=== PATIENT | female | born 1995 | race African-American/Black ===

== ENCOUNTER → 2018-03-22 | Outpatient (REF) | payer OTHER ==
[2018-03-22 10:13] LABS: TOTAL VOLUME, URINE 2750 ML
[2018-03-22 11:52] LABS: TOTAL PROTEIN 24 HOUR URINE 324.5 MG/24HR (50-150); URINE TOTAL PROTEIN 11.8 MG/DL (0-12)
== END ==
LOC: M LAB 12:16
DX: O16.1 Unspecified maternal hypertension, first trimester (principal)
CPT/HCPCS: 81050

== ENCOUNTER 2018-03-25 16:20 | Inpatient (IN) | payer OTHER ==
[2018-03-25 17:43] LABS: HEMOGLOBIN 9.7 g/dl (12.0-15.5); MEAN CORPUSCULAR HEMOGLOBIN 25.2 pg (27.0-33.0); MEAN CORPUSCULAR HGB CONC 32.3 g/dl (32.0-36.5); MEAN CORPUSCULAR VOLUME 77.9 fl (80.0-96.0); PLATELET COUNT, AUTOMATED 210 10^3/uL (150-450); RED BLOOD COUNT 3.85 10^6/uL (4.00-5.40); RED CELL DISTRIBUTION WIDTH 15.9 % (11.5-14.5); WHITE BLOOD COUNT 9.4 10^3/uL (4.0-10.0)
[2018-03-25] MEDS ORDERED: LR 1,000 ML IV (18:11)
[2018-03-25 18:23] LABS: ALBUMIN 2.7 GM/DL (3.2-5.2); ALBUMIN/GLOBULIN RATIO 0.61 (1.00-1.93); ALKALINE PHOSPHATASE 183 U/L (45-117); ALT/SGPT 15 U/L (12-78); ANION GAP 8 MEQ/L (8-16); AST/SGOT 13 U/L (7-37); BILIRUBIN,TOTAL 0.4 MG/DL (0.2-1.0); BLOOD UREA NITROGEN 5 MG/DL (7-18); CALCIUM LEVEL 9.2 MG/DL (8.5-10.1); CARBON DIOXIDE LEVEL 24 MEQ/L (21-32); CHLORIDE LEVEL 108 MEQ/L (98-107); CREATININE FOR GFR 0.54 MG/DL (0.55-1.30); GLOMERULAR FILTRATION RATE > 60.0 (>60); GLUCOSE, FASTING 90 MG/DL (70-100); POTASSIUM SERUM 2.9 MEQ/L (3.5-5.1); SODIUM LEVEL 140 MEQ/L (136-145); TOTAL PROTEIN 7.1 GM/DL (6.4-8.2)
[2018-03-25] MEDS: LACTATED RINGER'S 1000 ML IV (18:41)
[2018-03-25] MEDS: BETAMETHASONE SOLUSPAN 6MG/ML INJ 5ML (J0702) IM (18:41)
[2018-03-25] MEDS: PENICILLIN G POTASSIUM IV 5 MU in D5W MINI-BAG PLUS 100 ML IV (18:41)
[2018-03-25] MEDS: OXYTOCIN DRIP 30 UNITS in APPROPRIATE DILUENT 1 EA IV (18:42)
[2018-03-25 19:22] LABS: AMPHETAMINES URINE REFLEX NEGATIVE (NEGATIVE); BARBITURATES URINE REFLEX NEGATIVE (NEGATIVE); BENZODIAZEPINES URINE REFLEX NEGATIVE (NEGATIVE); CANNABINOIDS URINE REFLEX NEGATIVE (NEGATIVE); COCAINE METABOLITE URINE REFLE NEGATIVE (NEGATIVE); METHADONE URINE REFLEX NEGATIVE (NEGATIVE); OPIATES URINE REFLEX NEGATIVE (NEGATIVE); PHENCYCLIDINE URINE REFLEX NEGATIVE (NEGATIVE)
[2018-03-25 20:14] LABS: MAGNESIUM LEVEL 1.6 MG/DL (1.8-2.4)
[2018-03-25 20:14] LABS: POTASSIUM SERUM 3.2 MEQ/L (3.5-5.1)
[2018-03-25] MEDS ORDERED: NIFEdipine 10 MG CAP As Ordered (20:17)
[2018-03-25] MEDS: NIFEdipine 10 MG CAP PO (20:28)
[2018-03-25] MEDS ORDERED: MAGNESIUM SULFATE 4% INJ 20GM/500ML (40MG/ML) (J3475) As Ordered (20:58)
[2018-03-25] MEDS ORDERED: hydrALAZINE INJ 20 MG/ML VIAL As Ordered (20:58)
[2018-03-25] MEDS ORDERED: MAGNESIUM *L&D* 4 GM/100 ML BAG (40MG/ML) (J3475) As Ordered (20:58)
[2018-03-25] MEDS ORDERED: CALCIUM GLUCONATE 1,000 MG in D5W MINI-BAG PLUS 100 ML IV (21:00)
[2018-03-25] MEDS: hydrALAZINE INJ 20 MG/ML VIAL IV (21:13)
[2018-03-25] MEDS: MAG Sulf (L&D) 4 GM/100 ML 4 GM in APPROPRIATE DILUENT 1 EA IV (21:13)
[2018-03-25] MEDS: FENTANYL/ROPIVACAINE/NACL BAG 200 ML EPIDURAL (21:29)
[2018-03-25] MEDS ORDERED: ePHEDrine SULFATE 25 MG/5 ML(5MG/ML) SYRINGE IV (21:29)
[2018-03-25] MEDS ORDERED: EPIDURAL/PCA KEYS XX (21:29)
[2018-03-25] MEDS ORDERED: LACTATED RINGER'S 1000 ML IV (21:29)
[2018-03-25] MEDS ORDERED: diphenhydrAMINE INJ 50MG/ML VIAL (J1200) IV (21:29)
[2018-03-25] MEDS ORDERED: NALOXONE INJ 0.4 MG/1 ML VIAL (J2310) IV (21:29)
[2018-03-25] MEDS ORDERED: EPIDURAL COMMENT XX (21:29)
[2018-03-25] MEDS ORDERED: ONDANSETRON 4MG/2ML VIAL (J2405) IV ×2 (21:29→23:15)
[2018-03-25] MEDS ORDERED: FENTANYL 2MCG/ML ROPIVACAINE 0.2% IN 0.9% NACL 200ML IVBAG As Ordered (21:29)
[2018-03-25] MEDS ORDERED: REFRIGERATOR IV KEYS XX (21:29)
[2018-03-25] MEDS: MAG Sulf (OBGYN) 20GM/500ML 20,000 MG in APPROPRIATE DILUENT 1 EA IV (21:40)
[2018-03-25] MEDS: LR 1,000 ML IV (22:14)
[2018-03-25] MEDS ORDERED: DIBUCAINE 1% OINTMENT 30GM TOP (23:15)
[2018-03-25] MEDS ORDERED: PROMETHAZINE 25 MG TAB PO (23:15)
[2018-03-26] MEDS: IBUPROFEN 800 MG TAB PO ×2 (00:05→07:34)
[2018-03-26] MEDS: PENICILLIN G POTASSIUM IV 2.5 MU in APPROPRIATE DILUENT 1 EA IV ×2 (01:01→04:37)
[2018-03-26] MEDS: ACETAMINOPHEN 500 MG TAB PO ×2 (02:38→11:27)
[2018-03-26 04:21] LABS: ALBUMIN 2.8 GM/DL (3.2-5.2); ALBUMIN/GLOBULIN RATIO 0.67 (1.00-1.93); ALKALINE PHOSPHATASE 206 U/L (45-117); ALT/SGPT 14 U/L (12-78); ANION GAP 10 MEQ/L (8-16); AST/SGOT 22 U/L (7-37); BILIRUBIN,TOTAL 0.4 MG/DL (0.2-1.0); BLOOD UREA NITROGEN 5 MG/DL (7-18); CALCIUM LEVEL 8.2 MG/DL (8.5-10.1); CARBON DIOXIDE LEVEL 23 MEQ/L (21-32); CHLORIDE LEVEL 111 MEQ/L (98-107); CREATININE FOR GFR 0.51 MG/DL (0.55-1.30); GLOMERULAR FILTRATION RATE > 60.0 (>60); GLUCOSE, FASTING 117 MG/DL (70-100); POTASSIUM SERUM 3.3 MEQ/L (3.5-5.1); SODIUM LEVEL 144 MEQ/L (136-145)
[2018-03-26 04:35] LABS: MAGNESIUM LEVEL 4.6 MG/DL (1.8-2.4)
[2018-03-26] MEDS: MAG Sulf (OBGYN) 20GM/500ML 20,000 MG in APPROPRIATE DILUENT 1 EA IV ×2 (07:35→17:55)
[2018-03-26] MEDS: PRENATAL VITAMINS CHEWABLE TABLET PO (07:35)
[2018-03-26] MEDS: LR 1,000 ML IV ×3 (07:36→18:11)
[2018-03-26] MEDS: MEASLES,MUMPS,RUBELLA VACCINE INJ (MMR-II) (90707) SC (08:12)
[2018-03-26] MEDS: RHOGAM 300 MCG (1500 IU) INJ (J2790) IM (08:12)
[2018-03-26 11:34] LABS: POTASSIUM SERUM 3.1 MEQ/L (3.5-5.1)
[2018-03-26 11:39] LABS: MAGNESIUM LEVEL 5.7 MG/DL (1.8-2.4)
[2018-03-27] MEDS: LR 1,000 ML IV ×4 (02:11→20:23)
[2018-03-27] MEDS: PRENATAL VITAMINS CHEWABLE TABLET PO (10:40)
[2018-03-27] MEDS: IBUPROFEN 800 MG TAB PO (18:45)
[2018-03-27] MEDS: DOCUSATE SODIUM 100 MG CAP PO (19:51)
[2018-03-28] MEDS: PRENATAL VITAMINS CHEWABLE TABLET PO (08:35)
[2018-03-28] MEDS: IBUPROFEN 800 MG TAB PO (08:45)
[2018-03-28] MEDS: ACETAMINOPHEN 500 MG TAB PO (14:09)
[2018-03-28] MEDS: LABETALOL 200 MG TAB PO (19:37)
[2018-03-29] MEDS: PRENATAL VITAMINS CHEWABLE TABLET PO (09:06)
[2018-03-29] MEDS: IBUPROFEN 800 MG TAB PO ×2 (09:07→22:18)
[2018-03-29] MEDS: LABETALOL 200 MG TAB PO ×3 (09:08→22:17)
[2018-03-29] MEDS ORDERED: LABETALOL 200 MG TAB PO (21:00)
[2018-03-29] MEDS: NIFEdipine 30 MG XL TAB PO (22:47)
[2018-03-29] MEDS: hydrALAZINE INJ 20 MG/ML VIAL IV (23:40)
[2018-03-30] MEDS: PRENATAL VITAMINS CHEWABLE TABLET PO (08:43)
[2018-03-30] MEDS: DOCUSATE SODIUM 100 MG CAP PO (08:43)
[2018-03-30] MEDS: LABETALOL 200 MG TAB PO ×2 (08:44→21:15)
[2018-03-30] MEDS: NIFEdipine 30 MG XL TAB PO (21:16)
[2018-03-31] MEDS: LR 1,000 ML IV ×5 (03:52→03:53)
[2018-03-31] MEDS: PRENATAL VITAMINS CHEWABLE TABLET PO (08:27)
[2018-03-31] MEDS: LABETALOL 200 MG TAB PO (08:28)
== END 2018-03-31 11:15 | disposition home or self-care (01) | DRG 775 ==
LOC: M LDO 16:20 → M OBS 03-26 23:49 → M LDI 18:07
PROC: 10E0XZZ Delivery of Products of Conception, External Approach (ICD-10-PCS; principal; 2018-03-25)
PROC: 0KQM0ZZ Repair Perineum Muscle, Open Approach (ICD-10-PCS; 2018-03-25)
DX: O42.113 Preterm premature rupture of membranes, onset of labor more than 24 hours following rupture, third trimester (principal); O14.14 Severe pre-eclampsia complicating childbirth; O99.824 Streptococcus B carrier state complicating childbirth; Z3A.36 36 weeks gestation of pregnancy; O99.02 Anemia complicating childbirth; D64.9 Anemia, unspecified; O70.1 Second degree perineal laceration during delivery; Z37.0 Single live birth

== ENCOUNTER 2019-06-12 13:05 | Outpatient (CLI) | payer OTHER ==
[~2019-06-12] VITALS: Ht 170.2 cm; Wt 82.3 kg
[~2019-06-12 13:05] MED LIST: FERR325T3 PO; MAPA500T2 PO
[2019-06-12 13:31] VITALS: BP 127/64
[2019-06-12] MEDS ORDERED: FLUCONAZOLE 50MG TABLET PO ONE (15:00)
[2019-06-12 15:35] VITALS: BP 124/77
--- NOTE | 2019-06-12 16:10 | NUR ---
[facility] L&D Outpatient Evaluation Note S: Claudia is a 23 y/o who presents at 32+5 weeks via L/8+6 week US for c/o one time blood tinged dc noted while wiping after going to the bathroom earlier this morning (reports both BM and urination at the time and denies any further dc of this appearance) she also reports more frequent BH contractions and thicker vaginal discharge for the past 24 hours. She endorses excellent FM; denies LOF; and denies pain with ctx. Her is c/b A1GDM, short interval , overweight, anemia and enlarged thyroid. O: VSS/AF GEN: A&Ox3 PUL: CTAB CV: RRR ABD: Gravid; relaxed uterine resting tone EXT: Neg edema; Neg homans SSE: no vaginal bleeding; neg valsalva; closed os Micro: + fungal elements; neg clue cells; neg ferning; neg trich SCE: closed, thick, high; soft consistency FHR: initially CAT I fhr but non-reactive for gestational age; + 15x15 accelerations after increasing PO intake. BPP ordered d/t initial non-reactivity. BPP results pending A/P: 23 y/o at 32+5 weeks via L/8+6 week US. VVC dx via microscopy and treated with oral diflucan. ctx but no evidence of PTL or PPROM. CAT I FHR; appropriate for gestational age. May be dc'd home pending reassuring BP. Ex tensive review of late gestation warning signs, return precautions and importance of daily movement assessments. She has been instructed to f/u for MACIE as previously scheduled. She concurs with plan of care and reports understanding of all teaching.
--- NOTE | 2019-06-12 17:11 | REP ---
Obstetric sonography: History: Limited obstetric nonreactive stress test. Findings: Limited obstetric sonography demonstrates a single intrauterine gestation in a cephalic lie. A posterior placenta is seen without evidence of previa or abruption, grade one to two changes. Biophysical profile score is eight out of a possible eight. Amniotic fluid is subjectively normal. JOSE is normal at 10.6 cm. SD ratio in the umbilical cord artery by Doppler is normal at 2.46. Closed cervical length is 3.1 cm viewed transabdominally. Electronically Signed by Kyle Padron MD 06/12/2019 05:02 P
== END 2019-06-12 17:25 | disposition home or self-care (01) ==
LOC: M LDO 13:05
PROVIDERS: ATTEND Advanced Practice Midwife
DX: O26.853 Spotting complicating pregnancy, third trimester (principal); O26.893 Other specified pregnancy related conditions, third trimester; N89.8 Other specified noninflammatory disorders of vagina; O47.03 False labor before 37 completed weeks of gestation, third trimester; Z3A.32 32 weeks gestation of pregnancy
CPT/HCPCS: 59025; 76819; 76820; G0378; G0463

== ENCOUNTER 2019-07-12 19:43 | Inpatient (IN) | payer OTHER ==
[2019-07-12] VITALS (17 sets, daily range): BP systolic 131–194; BP diastolic 67–101
[~2019-07-12] VITALS: Ht 170.2 cm; Wt 81.7 kg
[2019-07-12] MEDS ORDERED: VITA500C24 PO (20:05)
[2019-07-12] MEDS ORDERED: MULTTAB20 PO (20:05)
[2019-07-12] MEDS ORDERED: LACTATED RINGER'S 1000 ML IV STA (20:23)
[2019-07-12] MEDS ORDERED: LR 1,000 ML IV SCH (20:23)
[2019-07-12 21:05] LABS: HEMATOCRIT 34.5 % (36.0-47.0); MEAN CORPUSCULAR HEMOGLOBIN 24.2 pg (27.0-33.0); MEAN CORPUSCULAR HGB CONC 31.9 g/dl (32.0-36.5); PLATELET COUNT, AUTOMATED 193 10^3/uL (150-450); RED BLOOD COUNT 4.54 10^6/uL (4.00-5.40); WHITE BLOOD COUNT 8.1 10^3/uL (4.0-10.0)
[2019-07-12] MEDS ORDERED: PENICILLIN G POTASSIUM IV 5 MU in D5W MINI-BAG PLUS 100 ML IV ONE (21:30)
[2019-07-12] MEDS ORDERED: FENTANYL 2MCG/ML ROPIVACAINE 0.2% IN 0.9% NACL 100ML IVBAG As Ordered ONE (22:08)
[2019-07-12] MEDS ORDERED: ePHEDrine SULFATE 25 MG/5 ML(5MG/ML) SYRINGE IV PRN (23:15)
[2019-07-12] MEDS ORDERED: FENTANYL/ROPIVACAINE/NACL BAG 100 ML EPIDURAL SCH (23:15)
[2019-07-12] MEDS ORDERED: ONDANSETRON 4MG/2ML VIAL (J2405) IV PRN (23:15)
[2019-07-12] MEDS ORDERED: EPIDURAL/PCA KEYS XX PRN (23:15)
[2019-07-12] MEDS ORDERED: NALOXONE INJ 0.4 MG/1 ML VIAL (J2310) IV PRN (23:15)
[2019-07-12] MEDS ORDERED: REFRIGERATOR IV KEYS XX PRN (23:15)
[2019-07-12] MEDS ORDERED: LACTATED RINGER'S 1000 ML IV PRN (23:15)
[2019-07-12] MEDS ORDERED: EPIDURAL COMMENT XX SCH (23:15)
[2019-07-12] MEDS ORDERED: diphenhydrAMINE INJ 50MG/ML VIAL (J1200) IV PRN (23:15)
[2019-07-12] MEDS ORDERED: OXYTOCIN 30 UNITS IN 0.9% NaCl 500ML IV BAG (J2590) As Ordered ONE (23:37)
[2019-07-13] VITALS (9 sets, daily range): BP systolic 124–137; BP diastolic 73–86
[2019-07-13 00:10] LABS: ALT/SGPT 23 U/L (12-78); BILIRUBIN,TOTAL 0.6 MG/DL (0.2-1.0); BLOOD UREA NITROGEN 4 MG/DL (7-18); CALCIUM LEVEL 8.2 MG/DL (8.5-10.1); CARBON DIOXIDE LEVEL 24 MEQ/L (21-32); CHLORIDE LEVEL 110 MEQ/L (98-107); CREATININE FOR GFR 0.49 MG/DL (0.55-1.30); GLOMERULAR FILTRATION RATE > 60.0 (>60); GLUCOSE, FASTING 74 MG/DL (70-100); LDH LACTATE DEHYDROGENASE 418 U/L (84-246); POTASSIUM SERUM 3.7 MEQ/L (3.5-5.1); SODIUM LEVEL 142 MEQ/L (136-145); URIC ACID 3.4 MG/DL (2.6-6.0)
[2019-07-13] MEDS ORDERED: OXYTOCIN DRIP 30 UNITS in APPROPRIATE DILUENT 1 EA IV SCH (00:42)
[2019-07-13] MEDS ORDERED: DIBUCAINE 1% OINTMENT 30GM TOP PRN (00:45)
[2019-07-13] MEDS ORDERED: IBUPROFEN 600 MG TAB PO PRN (00:45)
[2019-07-13] MEDS ORDERED: ACETAMINOPHEN TAB 650MG DOSE (2X325MG) PO PRN (00:45)
[2019-07-13] MEDS ORDERED: RHOGAM 300 MCG (1500 IU) INJ (J2790) IM SCH (00:45)
[2019-07-13] MEDS ORDERED: MEASLES,MUMPS,RUBELLA VACCINE INJ (MMR-II) (90707) SC SCH (00:45)
[2019-07-13] MEDS ORDERED: DOCUSATE SODIUM 100 MG CAP PO PRN (00:45)
[2019-07-13] MEDS ORDERED: METHYLERGONOVINE MALEATE 0.2 MG TAB PO PRN (00:45)
[2019-07-13] MEDS ORDERED: PENICILLIN G POTASSIUM IV 2.5 MU in APPROPRIATE DILUENT 1 EA IV SCH (02:00)
[2019-07-13] MEDS ORDERED: SLF 3 ML SYR IV PRN (03:15)
[2019-07-13] MEDS: SLF 3 ML SYR IV SCH ×3 (05:31→22:25)
--- NOTE | 2019-07-13 07:14 | HPE ---
DATE OF ADMISSION: 07/12/2019 Claudia is a 23-year-old female 2, para 0-1-0-1 with an estimated date of confinement (EDC) of sick to the August 02, 2098, estimated gestational age (EGA) 37 weeks gestation. The patient has a history of prior labor and pre-eclampsia 36 weeks. She also has a history of gestational diabetes with this , diet control. She presented today with complaints of contractions every 2-3 minutes. Upon evaluation in labor and delivery, she was found to be in early labor with a cervix 4 cm 70% effaced, fetus at -3 station. Her record reviewed and group B strep (GBS) status unknown. LAB: Blood type is B+, rubella immune, hepatitis negative, HIV negative, GC chlamydia negative, 1-hour sugar testing was abnormal, at 3 hours is also abnormal. PAST MEDICAL HISTORY: Significant for gestational diabetes diet control. She had a history of pre-eclampsia with her last . Had premature rupture of membrane at 36 weeks and delivered. PAST SURGICAL HISTORY: Denies. SOCIAL HISTORY: She denies any alcohol, drugs or cigarette smoking. REVIEW OF SYSTEMS: Unremarkable. MEDICATIONS: vitamins ALLERGIES: No known drug allergy. PHYSICAL EXAMINATION: Normal-appearing female. No acute distress. Abdomen: Soft, nontender, non distended. Extremities: No clubbing, cyanosis or edema. Vaginal exam: 4 cm, 70% fetus at -3 station. Tracing reviewed, category 1 tracing, contractions every 3-4 minutes. ASSESSMENT: Intrauterine at 37 weeks gestation in early labor with history of deliveries at 36 weeks, history of gestational diabetes diet control. PLAN: Admit to labor and delivery. Routine labs sent. Pain management discussed. The patient opts for an epidural. Will continue to monitor and anticipate delivery.
[2019-07-13] MEDS: PRENATAL VITAMINS CHEWABLE TABLET PO SCH (08:59)
[2019-07-13] MEDS: IBUPROFEN 800 MG TAB PO PRN (09:00)
[2019-07-13] MEDS: ACETAMINOPHEN 500 MG TAB PO PRN ×2 (14:40→22:31)
--- NOTE | 2019-07-13 21:05 | DN ---
DATE: 07/12/2019 A 23-year-old female 2, para 0-1-0-1 who was admitted at 37 weeks gestation in active labor. She progressed to fully dilated, pushed once and delivered a live male infant in right occiput anterior position over an intact perineum. scores 8 and 9. weight 6 pounds, 3 ounces. Placenta delivered spontaneously with a questionable placental abruption. Estimated blood loss 250 mL. Both mother and baby in stable condition.
[2019-07-14] VITALS (7 sets, daily range): BP systolic 133–162; BP diastolic 82–102
[2019-07-14] MEDS: SLF 3 ML SYR IV SCH ×3 (06:19→20:39)
[2019-07-14] MEDS: PRENATAL VITAMINS CHEWABLE TABLET PO SCH (07:32)
[2019-07-14 07:57] LABS: HEMATOCRIT 36.3 % (36.0-47.0); HEMOGLOBIN 11.5 g/dl (12.0-15.5); MEAN CORPUSCULAR HEMOGLOBIN 24.2 pg (27.0-33.0); MEAN CORPUSCULAR HGB CONC 31.7 g/dl (32.0-36.5); MEAN CORPUSCULAR VOLUME 76.4 fl (80.0-96.0); PLATELET COUNT, AUTOMATED 173 10^3/uL (150-450); RED BLOOD COUNT 4.75 10^6/uL (4.00-5.40); WHITE BLOOD COUNT 7.6 10^3/uL (4.0-10.0)
[2019-07-14] MEDS ORDERED: LABETALOL 200 MG TAB PO ONE (08:00)
[2019-07-14 08:22] LABS: ALT/SGPT 20 U/L (12-78); BILIRUBIN,TOTAL 0.4 MG/DL (0.2-1.0); CREATININE FOR GFR 0.64 MG/DL (0.55-1.30); GLOMERULAR FILTRATION RATE > 60.0 (>60); LDH LACTATE DEHYDROGENASE 353 U/L (84-246); URIC ACID 3.7 MG/DL (2.6-6.0)
[2019-07-14] MEDS ORDERED: LABETALOL 200 MG TAB PO SCH (09:00)
--- NOTE | 2019-07-14 09:07 | IPN ---
DATE: 07/13/2019 This and patient requested circumcision of their male . After discussing risks and benefits of circumcision, medical and nonmedical indications, penile block aftercare expressed understanding of penile block aftercare and bleeding, signed the consent form. All questions were answered. 20-minute discussion. Awaiting the clearance by hair boiler.
[2019-07-14] MEDS: LABETALOL 200 MG TAB PO SCH (20:38)
[2019-07-14] MEDS: IBUPROFEN 800 MG TAB PO PRN (20:39)
[2019-07-15 02:21] VITALS: BP 138/91
[2019-07-15 05:51] VITALS: BP 155/97
[2019-07-15] MEDS: SLF 3 ML SYR IV SCH (05:55)
[2019-07-15 09:26] VITALS: BP 135/92
[2019-07-15] MEDS: PRENATAL VITAMINS CHEWABLE TABLET PO SCH (09:26)
[2019-07-15] MEDS: LABETALOL 200 MG TAB PO SCH (09:26)
[2019-07-15] MEDS ORDERED: DIBU10OI TOP (09:46)
[2019-07-15] MEDS ORDERED: IBUP80TA PO (09:46)
[2019-07-15] MEDS ORDERED: ACET-683 PO (09:46)
[2019-07-15] MEDS ORDERED: COLA100C5 PO (09:46)
--- NOTE | 2019-07-16 17:49 | DSES ---
DATE OF ADMISSION: 07/12/2019 DATE OF DISCHARGE: 07/15/2019 A 23-year-old 2, now para 1 was admitted to 37 weeks with history of contractions. She has history of gestational diabetes, diet controlled. She also had a previous history of -induced hypertension. She had a spontaneous vaginal delivery of a male infant, 6 pounds 3 ounces, scores of 8 and 9 at one and five, respectively. On discharge, her hemoglobin was 11.5, hematocrit 36.3, and platelets were 173. Her vital signs on discharge: Blood pressure is 135/92, respirations 16, pulse was 16, temperature 97.4. We discussed phlebitis, cystitis, mastitis, metritis, cellulitis, diet, exercise pain management, perineal, breast, and wound care. The patient is ongoing medications were dispensed. She is to continue with her medications and to followup in the office in 2 weeks' time for blood pressure check. The patient was discharged improved. The rest examination unremarkable. Normocephalic, atraumatic. Neck: Full range of motion. Pupils equal and reactive to light. Distal pulses are symmetric. No evidence of deep vein thrombosis (DVT) pulmonary embolism (PE), or superficial phlebitis. Chest is clear bilaterally to bases. No wheezes or rhonchi. No costovertebral angle (CVA) tenderness. Abdomen soft. Uterus 2 below. Lochia is moderate. Four-quadrant bowel sounds are noted, and perineum is intact. She has no rashes, lesions, or pruritus. No arthralgia, myalgia. No complaint of joint pain. No complaint of cough, wheezes, shortness of breath, or dyspnea on exertion. No urgency, frequency. No nausea, vomiting, diarrhea, or constipation. In summary, we have a 37-week plus gestation, admitted for active labor. Discharged with a live- male infant.
== END 2019-07-15 11:45 | disposition home or self-care (01) | DRG 807 ==
LOC: M LDO 19:43 → M LDI 20:46 → M OBS 07-13 02:14
PROVIDERS: ADMIT Obstetrics & Gynecology; ATTEND Obstetrics & Gynecology
PROC: 10E0XZZ Delivery of Products of Conception, External Approach (ICD-10-PCS; principal; 2019-07-12)
DX: O24.410 Gestational diabetes mellitus in pregnancy, diet controlled (principal); Z37.0 Single live birth; Z3A.37 37 weeks gestation of pregnancy; O99.824 Streptococcus B carrier state complicating childbirth

== ENCOUNTER → 2019-09-25 | Outpatient (REF) ==
[~2019-09-25] MED LIST changes: +ACET-683 PO; +COLA100C5 PO; +DIBU10OI TOP; +IBUP80TA PO; +MULTTAB20 PO; +VITA500C24 PO
[2019-09-25 16:19] LABS: HEPATITIS B SURFACE ANTIGEN NEGATIVE (NEGATIVE)
[2019-09-25 16:31] LABS: HIV SCREEN CENTAUR SOURCE NEGATIVE (NEGATIVE)
== END ==
LOC: M LAB 13:16
PROVIDERS: ATTEND Family Medicine
DX: Z00.00 Encounter for general adult medical examination without abnormal findings (principal)

== ENCOUNTER 2019-11-04 02:50 | Emergency (ER) | payer OTHER ==
[~2019-11-04] VITALS: Ht 167.6 cm; Wt 68.2 kg
[2019-11-04 02:51] VITALS: BP 136/81
[2019-11-04] MEDS ORDERED: CYCL5TAB PO (03:53)
[2019-11-04] MEDS ORDERED: NAPR-837 PO (03:53)
[2019-11-04] MEDS ORDERED: KETOROLAC 60 MG/2 ML VIAL (J1885) IM ONE (04:00)
== END 2019-11-04 04:19 | disposition home or self-care (01) ==
LOC: M ED 02:50
DX: S46.811A Strain of other muscles, fascia and tendons at shoulder and upper arm level, right arm, initial encounter (principal); S46.812A Strain of other muscles, fascia and tendons at shoulder and upper arm level, left arm, initial encounter; X50.1XXA Overexertion from prolonged static or awkward postures, initial encounter; Y92.89 Other specified places as the place of occurrence of the external cause; Y93.F9 Activity, other caregiving; Y99.0 Civilian activity done for income or pay
CPT/HCPCS: 96372; 99282; J1885

== ENCOUNTER 2019-11-10 12:15 | Emergency (ER) | payer OTHER ==
[~2019-11-10] VITALS: Ht 167.6 cm; Wt 74.5 kg
[~2019-11-10 12:15] MED LIST changes: +CYCL5TAB PO; +NAPR-837 PO
[2019-11-10] MEDS ORDERED: diazePAM 5 MG TAB PO ONE (14:00)
[2019-11-10] MEDS ORDERED: NAPR-885 PO (15:15)
[2019-11-10] MEDS ORDERED: VALI5TAB PO (15:15)
[2019-11-10 15:23] VITALS: BP 126/75
== END 2019-11-10 15:24 | disposition home or self-care (01) ==
LOC: M ED 12:15
DX: S46.911D Strain of unspecified muscle, fascia and tendon at shoulder and upper arm level, right arm, subsequent encounter (principal)

== ENCOUNTER 2019-11-19 21:50 | Emergency (ER) | payer OTHER ==
[~2019-11-19] VITALS: Ht 167.6 cm; Wt 74.5 kg
[~2019-11-19 21:50] MED LIST changes: +NAPR-885 PO; +VALI5TAB PO
[2019-11-19 21:51] VITALS: BP 137/83
[2019-11-19] MEDS ORDERED: LIDOCAINE 5% (LIDODERM) PATCH TD ONE (23:30)
[2019-11-19] MEDS ORDERED: ACETAMINOPHEN 325 MG TAB PO ONE (23:30)
[2019-11-19] MEDS ORDERED: LIDO5DIS41 TD (23:37)
[2019-11-19] MEDS ORDERED: KETO10TAB PO (23:37)
[2019-11-20] MEDS ORDERED: **NOTE PATIENT COMMENT** MISC XX ONE (11:30)
== END 2019-11-20 00:14 | disposition home or self-care (01) ==
LOC: M ED 21:50
DX: S39.012A Strain of muscle, fascia and tendon of lower back, initial encounter (principal); S46.919A Strain of unspecified muscle, fascia and tendon at shoulder and upper arm level, unspecified arm, initial encounter; X58.XXXA Exposure to other specified factors, initial encounter; Y92.89 Other specified places as the place of occurrence of the external cause

== ENCOUNTER 2020-05-01 04:38 | Emergency (ER) | payer OTHER ==
[~2020-05-01] VITALS: Ht 167.6 cm; Wt 79.8 kg
[~2020-05-01 04:38] MED LIST changes: +KETO10TAB PO; +LIDO5DIS41 TD
[2020-05-01] MEDS ORDERED: LIDOCAINE 5% (LIDODERM) PATCH TD ONE (06:30)
[2020-05-01] MEDS ORDERED: KETOROLAC 30 MG/ML 1ML VIAL IM ONE (07:15)
[2020-05-01] MEDS ORDERED: CYCLOBENZAPRINE 10MG TABLET PO ONE (07:15)
[2020-05-01] MEDS ORDERED: CYCL5TAB PO (08:21)
[2020-05-01] MEDS ORDERED: IBUP80TA PO (08:21)
[2020-05-01 08:35] VITALS: BP 138/65
[2020-05-01] MEDS ORDERED: **NOTE PATIENT COMMENT** MISC XX SCH (21:00)
== END 2020-05-01 08:36 | disposition home or self-care (01) ==
LOC: M ED 04:38
DX: M51.37 Other intervertebral disc degeneration, lumbosacral region (principal); M62.830 Muscle spasm of back
CPT/HCPCS: 36415; 80047; 84702; 96372; 99283; J1885

== ENCOUNTER 2020-09-23 18:34 | Emergency (ER) | payer OTHER ==
[~2020-09-23] VITALS: Ht 167.6 cm; Wt 72.7 kg
[2020-09-23 19:33] LABS: BASO % 0.2 % (0.0-1.0); EOS % 0.2 % (0.0-3.0); HEMATOCRIT 35.5 % (36.0-47.0); HEMOGLOBIN 11.5 g/dl (12.0-15.5); LYMPH # 2.2 10^3/uL (1.5-5.0); MEAN CORPUSCULAR HEMOGLOBIN 25.2 pg (27.0-33.0); MEAN CORPUSCULAR HGB CONC 32.4 g/dl (32.0-36.5); MEAN CORPUSCULAR VOLUME 77.9 fl (80.0-96.0); MONO # 0.5 10^3/uL (0.0-0.8); MONO % 5.9 % (0.0-5.0); NEUTROPHILS # 5.7 10^3/uL (1.5-8.5); NEUTROPHILS % 67.3 % (36.0-66.0); PLATELET COUNT, AUTOMATED 274 10^3/uL (150-450); RED BLOOD COUNT 4.56 10^6/uL (4.00-5.40); WHITE BLOOD COUNT 8.5 10^3/uL (4.0-10.0)
[2020-09-23] MEDS ORDERED: ONDANSETRON 4MG/2ML VIAL IV ONE (19:45)
--- NOTE | 2020-09-23 20:56 | REPVR ---
PROCEDURE INFORMATION: Exam: US First Trimester, Transabdominal and US Duplex Artery or Vein, Ovaries, Limited Exam date and time: 09/23/2020 8:04 PM Age: 24 years old Clinical indication: Pelvic pain; Gestational age or lmp: 07/14/2020; ; Additional info: Cramping TECHNIQUE: Imaging protocol: Real-time transabdominal obstetrical ultrasound of the maternal pelvis and a first trimester , less than 14 weeks 0 days, with image documentation. Real-time duplex ultrasound scan of the arterial or venous flow of the ovaries with B-mode, color Doppler flow and spectral waveform analysis, limited Duplex. COMPARISON: No relevant prior studies available. FINDINGS: Last menstrual period: 07/14/2020 Gestation: There is a single intrauterine gestation. motion was observed by the medical lab technologist. There is a 5 mm in diameter yolk sac. Embryonic/ heart rate: 174 bpm Placenta: No subchorionic hemorrhage is noted. Amniotic fluid: Amniotic fluid is normal for gestational age. BIOMETRY: Gestational age (AUA): 8 weeks 6 days Gestational age by LMP: 10 weeks 1 day Estimated due date (AUA): 04/29/2021 Estimated due date by LMP: 04/20/2021 [place] length: 21.79 mm (7th percentile) MATERNAL: Uterus: The uterus is anteverted and measures 11.1 cm x 6 cm x 8 cm. No myometrial mass is noted. Cervix: Unremarkable. Right adnexa: The right ovary was not visualized due to obscuration by intestinal gas. Left adnexa: The left ovary measures 6.9 cm x 5.1 cm x 7.4 cm and contains a 6.6 cm x 6.8 cm x 4.7 cm cyst without thick septations or solid nodular components. The arterial and venous color Doppler flow and spectral waveforms within the left ovary are within normal limits, without evidence for left ovarian torsion. Intraperitoneal space: No intraperitoneal free fluid. IMPRESSION: 1. Single live intrauterine with a gestational age of 8 weeks 6 days and estimated due date on 04/29/2021. A second trimester obstetrical ultrasound is suggested at 19-20 weeks gestation for a detailed anatomical survey. 2. 6.6 cm x 6.8 cm x 4.7 cm left ovarian cyst. No evidence for left ovarian torsion. 3. Right ovary not visualized. Electronically signed by: Tanvir Brock On 09/23/2020 20:56:45 PM
[2020-09-23] MEDS ORDERED: ZOFR4TAB16 PO (21:18)
[2020-09-23 21:22] VITALS: BP 122/73
== END 2020-09-23 21:32 | disposition home or self-care (01) ==
LOC: M ED 18:34
DX: O21.0 Mild hyperemesis gravidarum (principal); Z79.899 Other long term (current) drug therapy; Z3A.08 8 weeks gestation of pregnancy
CPT/HCPCS: 36415; 76801; 80047; 81001; 84702; 85025; 93976; 96374; 99284; J2405

== ENCOUNTER 2021-02-01 19:05 | Outpatient (CLI) | payer OTHER ==
[~2021-02-01] VITALS: Ht 170.2 cm; Wt 77.4 kg
[~2021-02-01 19:05] MED LIST changes: +ZOFR4TAB16 PO
[2021-02-01 19:19] VITALS: BP 133/80
[2021-02-01] MEDS ORDERED: CYCLOBENZAPRINE 10MG TABLET PO ONE (20:40)
[2021-02-01] MEDS ORDERED: ACETAMINOPHEN 500 MG TAB PO ONE (20:40)
--- NOTE | 2021-02-01 20:47 | IPNPDOC ---
Text Note Date of Service The patient was seen on 02/01/21. NOTE 25 yo at 27+3 weeks gestation presented to L&D with the complaint of back pain. She reports she has chronic back pain ever since an injury at work in 2019. She describes the pain as "all over" her back, but mostly lower with radiation to the top of her back and the front of her body. Outside of she typically takes flexeril and naproxen for the back pain. However, she was told there was nothing safe to take in and so she hasn't taken flexeril or even tylenol. She denies any vaginal bleeding, contractions, or leakage of fluid. She endorses feeling lots of movement. Chaperoned by L&D RN Vitals - VSS, afebrile, normotensive, non tachycardic General - AAOX3, sitting up in bed, NAD, pleasant and conversant Abdomen - Gravid uterus at appropriate size for gestational age. No fundal tenderness. Back - Diffuse mild tenderness to palpation. Mostly concentrated in lower mid back at lumbosacral junction. No CVA tenderness. Extremities - No edema FHR tracing - Appropriate for gestational age. No decels. No ctx on toco. Bedside TAUS ( anatomy not assessed): Viable SIUP in cephalic presentation. Cervix closed and measured 3.75cm in length with no funneling. +gross movement. JOSE 14.8cm. Patient given PO flexeril and PO tylenol with improvement in symptoms. Reassuring status. No evidence of labor or infection. Counseled patient that tylenol and flexeril are both safe in . Discharged home with return precautions. Follow up already scheduled in the office for next week. Return to care sooner for any urgent concerns. 30 minutes of patient care Maulik Sepulveda DO VS,Saturninobonray, I+O VS, Fishbone, I+O Vital Signs Date Time Temp Pulse Resp B/P (MAP) Pulse Ox O2 Delivery O2 Flow Rate FiO2 02/01/21 19:19 97.8 95 16 133/80 (97) MAULIK SEPULVEDA DO Feb 01, 2021 20:47
== END 2021-02-01 20:38 | disposition home or self-care (01) ==
LOC: M LDO 19:05
PROVIDERS: ATTEND Obstetrics & Gynecology
DX: O26.892 Other specified pregnancy related conditions, second trimester (principal); Z3A.27 27 weeks gestation of pregnancy
CPT/HCPCS: 81001; 87086; G0378; G0463

== ENCOUNTER → 2021-02-16 | Outpatient (CLI) | payer OTHER ==
--- NOTE | 2021-02-16 13:06 | REP ---
INDICATION: GROWTH 28 WEEKS. COMPARISON: 09/23/2020. TECHNIQUE: Multiple ultrasonographic images of the gravid uterus. FINDINGS: There is a single intrauterine gestation in a cephalic presentation. The placenta is anterior with grade 2 maturity. There is no previa. Cervix measures 3.9 cm length. heart rate is 157 beats per minute. Amniotic fluid volume subjectively is normal. Amniotic fluid index is 13.4. Normal is 9.1-23.3. The composite ultrasound gestational age is 29 weeks 3 days with an RHIANNON of 05/01/2021. Gestational age by the 1st ultrasound is 29 weeks 5 days with an RHIANNON of 04/29/2021. Gestational age by LMP is 31 weeks 0 days with an RHIANNON of 04/20/2021. Estimated weight is 1358 g/2 lb, 15 oz. This is less than the 3rd percentile for gestational age of 31 weeks 0 days. Umbilical artery Doppler: PSV 30.2 centimeters/second EDV 15.0 centimeters/second S/D 2.01 (1.98-4.14) RI 0.50 (0.52-0.76) anatomy: The following anatomic structures are identified and are unremarkable: Cranium, falx, facial profile, upper lip, lungs, cardiac rhythm, four-chamber heart, cardiac right ventricular outflow tract, diaphragm, stomach, abdominal wall and right and left kidneys. IMPRESSION: Findings as discussed above. A follow-up study might be considered to evaluate those of anatomic structures that are not identified at this time. <Electronically signed by Pastor Linares > 02/16/21 [id number]
== END ==
LOC: M RAD 11:19
PROVIDERS: ATTEND Registered Nurse Maternal Newborn
DX: Z34.83 Encounter for supervision of other normal pregnancy, third trimester (principal); Z3A.29 29 weeks gestation of pregnancy

== ENCOUNTER 2021-04-14 13:37 | Inpatient (IN) | payer OTHER ==
[~2021-04-14] VITALS: Ht 170.2 cm; Wt 82.4 kg
[2021-04-14] VITALS (21 sets, daily range): BP systolic 130–168; BP diastolic 64–106
[~2021-04-14 13:37] MED LIST changes: -DIBU10OI TOP; +DIBU28OI2 TOP
[2021-04-14] MEDS ORDERED: UNIS25TA3 PO (14:01)
[2021-04-14] MEDS ORDERED: IRON65TA2 PO (14:01)
[2021-04-14] MEDS ORDERED: PRENTAB9 PO (14:01)
[2021-04-14] MEDS ORDERED: ASPI81CH33 PO (14:01)
[2021-04-14] MEDS ORDERED: VITA500C19 PO (14:01)
[2021-04-14] MEDS ORDERED: LACTATED RINGER'S 1000 ML IV STA (15:09)
[2021-04-14] MEDS ORDERED: LIDOCAINE 1% MDV 20ML VIAL INFIL PRN (15:10)
[2021-04-14] MEDS: LR 1,000 ML IV SCH ×2 (15:10→23:10)
[2021-04-14] MEDS ORDERED: OXYTOCIN DRIP 30 UNITS in IV 1 EA IV PRN (15:10)
[2021-04-14 15:45] LABS: HEMATOCRIT 30.1 % (36.0-47.0); HEMOGLOBIN 9.4 g/dl (12.0-15.5); MEAN CORPUSCULAR HEMOGLOBIN 23.5 pg (27.0-33.0); MEAN CORPUSCULAR HGB CONC 31.2 g/dl (32.0-36.5); MEAN CORPUSCULAR VOLUME 75.3 fl (80.0-96.0); PLATELET COUNT, AUTOMATED 202 10^3/uL (150-450); WHITE BLOOD COUNT 10.2 10^3/uL (4.0-10.0)
[2021-04-14] MEDS ORDERED: FENTANYL 2MCG/ML ROPIVACAINE 0.2% IN 0.9% NACL 100ML IVBAG As Ordered ONE (15:49)
--- NOTE | 2021-04-14 16:11 | HPEPDOC ---
Obstetrical History & Physical General Date of Admission April 14, 2021 at 15:06 History of Present Illness 25yo , presenting with c/o SROM clear at 1300 today. complicate d by gestational diabetes and history of delivery and pre eclampsia. Chief Complaint: Contractions, term, LOF, term Information Provided By: Patient Age: 25 : 3 Term: 1 Pre-term: 1 Abortions: 0 Livin Care Care: Other (minimal completion) Dating Final EDC: April 30, 2021 Final EDC for Daily Update: April 30, 2021 Final EDC by: LMP LMP: Jul 14, 2020 Estimated Date of Confinement: April 30, 2021 EGA at Admission: 37 (+4) Antepartum Course Diagnos(e)s A1GDM, low back pain, depression, hx of prior delivery and pre eclampsia Height (inches): 66 Pre- weight (lbs.): 169 Admission Weight (lbs.): 182 Change in Weight (lbs.): 13 Past Medical History Past Obstetrical History #1: Past Obstetrical History: Multigravida Date of Delivery: Mar 25, 2018 Gestation: 36 (+2) Type of Delivery: Spontaneous Vaginal Del. Sex of Infant: Male Weight of (grams): 6 (#5) Complications: Yes (PPROM, Pre E) Past Obstetrical History #2: Past Obstetrical History: Multigravida Date of Delivery: Jul 12, 2019 Gestation: 37 Type of Delivery: Spontaneous Vaginal Del. Sex of : Male Weight of Infant (grams): 6 (#7) Complications: Yes (GDMA1) LIBRARIAN History: No pertinent history Past Medical History Surgical History: Denies/None Family History Significant Family History: No pertinent family hx Social History Marital Status: Family situation: Spouse/partner home Psychosocial History: Anxiety, Depression * Smoker: non-smoker Alcohol: Denies Drugs: denies Abuse Violence Screening Have you been hit/kicked/slapp: No Have you been sexually assault: No Imunizations Tdap status: current Allergies Coded Allergies: No Known Allergies (Unverified , 03/25/18) Medications Scheduled Ascorbic Acid (Vitamin C) 500 Mg Capsule.er, 500 MG PO DAILY Aspirin (Aspirin) 81 Mg Tab.chew, 81 MG PO DAILY for pain Doxylamine Succinate (Unisom Sleep Aid) 25 Mg Tablet, 1 TAB PO QPM Ferrous Sulfate (Iron) 325 Mg Tablet, 1 TAB PO DAILY No.137/Iron/Folic Acd ( Vitamin Tablet) 1 Each Tablet, 1 TAB PO DAILY Physical Examination Physical Examination GENERAL: Alert and oriented times three. BREAST: . ABDOMEN: Gravid and non-tender to touch. FETUS: Is vertex (VTX) by sterile vaginal examination (SVE), fetus is vertex (VTX) by Alexey. HEART RATE: Regular rate and rhythm. LUNGS: Clear to auscultation (CTA). EXTREMITIES: No edema. No clonus. Deep tendon reflexes (DTRs) + 2. Other physical findings Clear fluid pooling in the vaginal vault and visible membranes, +nitrazine, +ferning Vital Signs/I&O Vital Signs Date Time Temp Pulse Resp B/P (MAP) Pulse Ox O2 Delivery O2 Flow Rate FiO2 04/14/21 14:21 88 136/71 (92) 04/14/21 13:52 98.8 20 Laboratory Data 24H LABS Laboratory Tests 2 04/14/21 15:12: Bedside Glucose (Misc Panel) 86 04/14/21 15:26: Serology Scanned Report Hepatitis B Testing Pertinent Laboratoy Data Blood Type: B+ RBC Antibody Screen: Negative HIV: Negative Hepatitis B: Negative Rapid Plasma Reagin: Nonreactive Rubella: Immune Varicella: Immune Chlamydia/Gonorrhea: Negative Group B Streptococcus: Negative Cystic Fibrosis: Negative Anatomy Ultrasound Placenta Location: Anterior Normal Anatomy: Yes Placenta Previa: No Vaginal Examination Dilation: 6 cm Effacement: 70% Station: -1 Cervical Consistency: Soft Cervical Position: Middle Presentation: Cephalic presentation Assessment Heart Rate (FHR): 135 Variability: Moderate Accelerations: Positive Decelerations: None Tocometer Contractions: Yes Frequency: every 1-3 min. Duration: less than 60 seconds Strength: palpated as moderate, resting tone palp/soft Multi-drug resistant Organism: No history of MDRO Assessment/Plan Assessment Claudia is a 25-year-old (G)3 para (P)1-1-0-2 at 37+4 weeks by 8+4-week ultrasound. Presents to Labor and Delivery (L&D) with c/o labor/SROM. 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 Diet: clear. Group B Streptococcus (GBS) negative. Labs and intravenous (IV) per unit protocol with random glucose and HA1C. Counseled on Pitocin and induction of labor (IOL). Lactated Ringers (LR): Bolus 1000 mL, then at 125 mL/hr. Anticipate [normal spontaneous delivery ()]. C-S as appropriate. May have epidural as desired. CORA TIERNEY CNM April 14, 2021 16:11
[2021-04-14 16:12] LABS: GLUCOSE,RANDOM 84 MG/DL (LESS THAN 200)
[2021-04-14 16:15] LABS: HEMOGLOBIN A1c 6.1 %
[2021-04-14] MEDS ORDERED: METHYLERGONOVINE MALEATE 0.2 MG TAB PO PRN (17:10)
[2021-04-14] MEDS ORDERED: RHOGAM 300 MCG (1500 IU) INJ (J2790) IM SCH (17:10)
[2021-04-14] MEDS ORDERED: OXYTOCIN DRIP 30 UNITS in IV 1 EA IV SCH (17:10)
[2021-04-14] MEDS ORDERED: DIBUCAINE 1% OINTMENT 30GM TOP PRN (17:10)
[2021-04-14] MEDS ORDERED: DOCUSATE SODIUM 100MG CAPSULE PO PRN (17:10)
[2021-04-14] MEDS ORDERED: MEASLES,MUMPS,RUBELLA VACCINE INJ (MMR-II) (90707) SC SCH (17:10)
[2021-04-14] MEDS ORDERED: NALOXONE INJ 0.4MG/1ML VIAL (J2310 PER 1MG) IV PRN (17:20)
[2021-04-14] MEDS ORDERED: ePHEDrine SULFATE 25 MG/5 ML(5MG/ML) SYRINGE IV PRN (17:20)
[2021-04-14] MEDS ORDERED: LACTATED RINGER'S 1000 ML IV PRN (17:20)
[2021-04-14] MEDS ORDERED: diphenhydrAMINE 50MG/ML VIAL (J1200) IV PRN (17:20)
[2021-04-14] MEDS ORDERED: ONDANSETRON 4MG/2ML VIAL IV PRN (17:20)
[2021-04-14] MEDS ORDERED: REFRIGERATOR IV KEYS XX PRN (17:20)
[2021-04-14] MEDS ORDERED: FENTANYL/ROPIVACAINE/NACL BAG 100 ML EPIDURAL SCH (17:20)
[2021-04-14] MEDS ORDERED: EPIDURAL COMMENT XX SCH (17:20)
[2021-04-14] MEDS ORDERED: EPIDURAL/PCA KEYS XX PRN (17:20)
--- NOTE | 2021-04-14 17:51 | DNPDOC ---
[facility] Delivery Note Delivery Note DATE OF DELIVERY: 14Apr2021 PREDELIVERY DIAGNOSIS: 38-5/7 weeks' gestation and labor. POST DELIVERY DIAGNOSIS: Delivered. PROCEDURE: Spontaneous vaginal delivery. FUNDING SPECIALIST: Gaby Tierney ANESTHESIA: epidural. ESTIMATED BLOOD LOSS: 50 mL. FINDINGS: 7 pound 3 ounce male infant, Score 9/9, loose nuchal cord times 1. DELIVERY SUMMARY: Patient is a 25-year-old 3 now para 2-1-0-3 who was admitted to labor and delivery for SROM at term on 14Apr2021. Pt progressed quickly to C/C/+2 with urge to push and had rapid decent with maternal pushing efforts to over an intact perineum in OA presentation with restitution to JEANNINE. A loose nuchal cord was noted after delivery of the head. The right anterior shoulder was delivered followed easily by the posterior shoulder. The was somersaulted towards the maternal right thigh and the cord was manually reduced. The was placed immediately skin to skin on the maternal abdomen, dried and stimulated for a vigorous cry. Pitocin infusion was initiated per protocol. The placenta delivered spontaneously intact in rebecca presentation with minimal bleeding. The fundus firmed immediately and the cervix was swept for a small clot. Mother and baby entered the recovery phase in stable condition, skin to skin. GABY TIERNEY CNM April 14, 2021 17:51
[2021-04-14] MEDS: ACETAMINOPHEN TAB 650MG DOSE (2X325MG) PO PRN (19:26)
[2021-04-14] MEDS: IBUPROFEN 800 MG TAB PO PRN (19:27)
[2021-04-15] MEDS: ACETAMINOPHEN TAB 650MG DOSE (2X325MG) PO PRN (01:34)
[2021-04-15] MEDS: IBUPROFEN 800 MG TAB PO PRN ×2 (03:22→15:07)
[2021-04-15 05:20] VITALS: BP 131/44
[2021-04-15] MEDS: PRENATAL VITAMINS CHEWABLE TABLET PO SCH (08:23)
--- NOTE | 2021-04-15 09:48 | IPNPDOC ---
Progress Note Date of Service: April 15, 2021 Day#: 1 Progress Note SUBJECT: Claudia is a 25-year-old 3 now Para 2-1-0-3 status post uncomplicated spontaneous vaginal delivery at 38-5/7 weeks' on 14Apr2021 of a male 7 pounds 2 ounces without laceration, doing well day # 1. She has been ambulating, voiding spontaneously without issue and tolerating regular diet. Breast feeding without issue. Reports lochia is normal. Patient is ambulating well. Reports some cramping with . Denies any pain. Voiding and stooling without difficulty. OBJECTIVE: VITAL SIGNS: Within normal limits, afebrile. Alert and oriented times three. Breath sounds clear to auscultation. Heart rate: Regular rate and rhythm, no murmurs, rubs or gallops. Abdomen: Fundus firm at U-2. Soft, NTTP. Minimal lochia. ASSESSMENT: Claudia is a 25-year-old 3 now Para 2-1-0-1 status post uncomplicated spontaneous vaginal delivery after presenting in active labor with spontaneous rupture of membranes (SROM), delivered at 38-5/7 weeks', doing well on day 1. Vitals within normal limits, afebrile, hemodynamically stable with no evidence of infection. PLAN: 1. Discharge to home day 2. 2. Tylenol and Motrin for pain. 3. Encourage breast feeding and ambulation. VS, I&O, 24H, Fishbone Vital Signs/I&O Vital Signs Date Time Temp Pulse Resp B/P (MAP) Pulse Ox O2 Delivery O2 Flow Rate FiO2 04/15/21 05:20 98.6 88 15 131/44 (73) 99 Room Air I&O- Last 24 Hours up to 6 AM 04/15/21 05:59 Output Total 850 ml Balance -850 ml Laboratory Data 24H LABS Laboratory Tests 2 04/14/21 15:12: Bedside Glucose (Misc Panel) 86 04/14/21 15:19: Nucleated Red Blood Cells % (auto) 0.0, Random Glucose 84, Syphilis Serology NONREACTIVE 04/14/21 15:21: Estimated Mean Plasma Glucose 128H, Hemoglobin A1c 6.1 04/14/21 15:26: Serology Scanned Report Hepatitis B Testing CBC/BMP Laboratory Tests 04/14/21 15:19 CORA TIERNEY CNM April 15, 2021 09:48
[2021-04-15 18:00] VITALS: BP 135/92
--- NOTE | 2021-04-15 19:26 | IPN ---
PROGRESS NOTE DATE: 04/15/2021 SUBJECTIVE: This patient and her requested circumcision of her male infant. After discussing the risks and benefits of circumcision, the medical and nonmedical indications, the penile block and aftercare, expressed understanding of penile block and aftercare. All questions were answered. A 20 minute discussion. We await clearance by the spool tender.
[2021-04-16 06:00] VITALS: BP 132/84
[2021-04-16] MEDS ORDERED: DIBU28OI2 TOP (07:05)
[2021-04-16] MEDS ORDERED: DOK1CAP7 PO (07:05)
[2021-04-16] MEDS ORDERED: IBUP80TA PO (07:05)
[2021-04-16] MEDS: IBUPROFEN 800 MG TAB PO PRN (08:02)
[2021-04-16] MEDS: PRENATAL VITAMINS CHEWABLE TABLET PO SCH (08:02)
--- NOTE | 2021-04-16 21:18 | DSES ---
DISCHARGE SUMMARY DATE OF ADMISSION: 04/14/2021 DATE OF DISCHARGE: 04/16/2021 This lady is a 25-year-old 3, now para 3, was admitted in spontaneous active labor, had an epidural in place, spontaneous vaginal delivery of a live male infant, weighing 7 pounds 3 ounces, scores of 9 and 9 at 1 and 5 minutes, respectively. On her second day, we discussed phlebitis, cystitis, mastitis, endometritis, and cellulitis, diet, exercise, pain management, perineal and breast care. On discharge, her blood pressure is 132/84, respirations were 14, temperature is 99.3. Her admitting hemoglobin was 9.4, hematocrit 30.1, and platelets 202. In summary, we have a term gestation who delivered a live male infant. 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 She is to make a 6 week checkup at [facility]. All questions were answered. 20 minute discussion.
== END 2021-04-16 13:35 | disposition home or self-care (01) | DRG 807 ==
LOC: M LDO 13:37 → M LDI 15:06 → M OBS 19:58
PROVIDERS: ADMIT Registered Nurse; ATTEND Registered Nurse
PROC: 10E0XZZ Delivery of Products of Conception, External Approach (ICD-10-PCS; principal; 2021-04-14)
DX: O24.420 Gestational diabetes mellitus in childbirth, diet controlled (principal); Z37.0 Single live birth; Z3A.38 38 weeks gestation of pregnancy; O69.81X0 Labor and delivery complicated by cord around neck, without compression, not applicable or unspecified

== ENCOUNTER 2021-07-13 12:20 | Emergency (ER) | payer OTHER ==
[~2021-07-13] VITALS: Ht 170.2 cm; Wt 74.6 kg
[~2021-07-13 12:20] MED LIST changes: +ASPI81CH33 PO; +DOK1CAP4 PO; +IRON65TA2 PO; +PRENTAB9 PO; +UNIS25TA3 PO; +VITA500C19 PO
[2021-07-13] MEDS ORDERED: PARA1IUD (12:41)
[2021-07-13] MEDS ORDERED: methocarbamoL 500 MG TAB PO ONE (15:00)
[2021-07-13] MEDS ORDERED: LIDOCAINE 5% (LIDODERM) PATCH TD ONE (15:00)
[2021-07-13] MEDS ORDERED: KETOROLAC 30 MG/ML 1ML VIAL IM ONE (15:00)
[2021-07-13] MEDS ORDERED: METH-1164 PO (16:16)
[2021-07-13] MEDS ORDERED: LIDO5DIS41 TOP (16:17)
[2021-07-13 16:42] VITALS: BP 110/71
[2021-07-14] MEDS ORDERED: **NOTE PATIENT COMMENT** MISC XX ONE (03:00)
== END 2021-07-13 17:07 | disposition home or self-care (01) ==
LOC: M ED 12:20
DX: M54.41 Lumbago with sciatica, right side (principal); Z97.5 Presence of (intrauterine) contraceptive device
CPT/HCPCS: 36415; 80047; 84702; 96372; 99283; J1885

== ENCOUNTER → 2022-02-01 | Outpatient (CLI) | payer OTHER ==
[~2022-02-01] MED LIST changes: +LIDO5DIS41 TOP; +METH-1164 PO; +PARA1IUD
== END ==
LOC: M PAIN 13:00
PROVIDERS: ATTEND Anesthesiology
DX: M54.6 Pain in thoracic spine (principal); M47.817 Spondylosis without myelopathy or radiculopathy, lumbosacral region; Z79.82 Long term (current) use of aspirin; Z79.899 Other long term (current) drug therapy; R76.11 Nonspecific reaction to tuberculin skin test without active tuberculosis

== ENCOUNTER → 2022-04-11 | Outpatient (REF) | LOC: M LAB 15:47 | PROVIDERS: ATTEND Nurse Practitioner Adult Health | DX: Z00.00 Encounter for general adult medical examination without abnormal findings (principal) ==

== ENCOUNTER → 2022-06-27 | Outpatient (REF) | LOC: M LABSMTC 09:40 | PROVIDERS: ATTEND Family Medicine | DX: Z11.52 Encounter for screening for COVID-19 (principal) ==

== ENCOUNTER → 2022-12-27 | Outpatient (CLI) | payer OTHER ==
[2022-12-27 12:19] LABS: BASO % 0.4 % (0.0-1.0); EOS # 0.1 10^3/uL (0.0-0.5); EOS % 1.6 % (0.0-3.0); HEMATOCRIT 37.9 % (36.0-47.0); HEMOGLOBIN 11.9 g/dl (12.0-15.5); LYMPH # 2.2 10^3/uL (1.5-5.0); MEAN CORPUSCULAR HEMOGLOBIN 25.1 pg (27.0-33.0); MEAN CORPUSCULAR HGB CONC 31.4 g/dl (32.0-36.5); MEAN CORPUSCULAR VOLUME 79.8 fl (80.0-96.0); MONO # 0.4 10^3/uL (0.0-0.8); MONO % 7.3 % (2.0-8.0); NEUTROPHILS # 2.9 10^3/uL (1.5-8.5); NEUTROPHILS % 51.7 % (36.0-66.0); PLATELET COUNT, AUTOMATED 225 10^3/uL (150-450); RED BLOOD COUNT 4.75 10^6/uL (4.00-5.40); WHITE BLOOD COUNT 5.6 10^3/uL (4.0-10.0)
[2022-12-27 12:46] LABS: ALKALINE PHOSPHATASE 87 U/L (46-116); ALT/SGPT 42 U/L (7.0-40); AST/SGOT 44 U/L (<34); BILIRUBIN,TOTAL 0.3 MG/DL (0.3-1.2); BLOOD UREA NITROGEN 16 MG/DL (9-23); CALCIUM LEVEL 9.3 MG/DL (8.5-10.1); CARBON DIOXIDE LEVEL 26 MMOL/L (20-31); CHLORIDE LEVEL 106 MMOL/L (98-107); GLOMERULAR FILTRATION RATE > 60.0 (>60); GLUCOSE, FASTING 119 MG/DL (60-100); POTASSIUM SERUM 4.5 MMOL/L (3.5-5.1); SODIUM LEVEL 138 MMOL/L (136-145)
== END ==
LOC: M LAB 11:46
PROVIDERS: ATTEND Physician Assistant
DX: L90.6 Striae atrophicae (principal)

== ENCOUNTER 2023-02-03 17:49 | Emergency (ER) | payer OTHER ==
[~2023-02-03] VITALS: Ht 170.2 cm; Wt 82.3 kg
[2023-02-03 17:50] VITALS: BP 136/79
[2023-02-03] MEDS ORDERED: ACETAMINOPHEN 325 MG TAB PO ONE (18:15)
[2023-02-03] MEDS ORDERED: ACETAMINOPHEN TAB 650MG DOSE (2X325MG) PO ONE (18:15)
[2023-02-03] MEDS ORDERED: IBUPROFEN 600MG TAB PO ONE (19:40)
[2023-02-03] MEDS ORDERED: AMOXICILLIN 500 MG CAP PO ONE (19:40)
[2023-02-04] MEDS ORDERED: AMOX500C PO (12:23)
== END 2023-02-03 20:05 | disposition home or self-care (01) ==
LOC: M ED 17:49
DX: J02.0 Streptococcal pharyngitis (principal); R50.9 Fever, unspecified; D50.9 Iron deficiency anemia, unspecified

== ENCOUNTER → 2023-07-29 | Outpatient (REF) ==
[~2023-07-29] MED LIST changes: +AMOX500C PO
== END ==
LOC: M EMP 12:23
PROVIDERS: ATTEND Family Medicine
DX: Z11.52 Encounter for screening for COVID-19 (principal)

== ENCOUNTER → 2024-08-18 | Outpatient (REF) | LOC: M EMP 10:46 | PROVIDERS: ATTEND Family Medicine | DX: Z11.52 Encounter for screening for COVID-19 (principal) ==

== ENCOUNTER 2024-10-11 07:52 | Emergency (ER) | payer OTHER ==
[~2024-10-11] VITALS: Ht 170.2 cm; Wt 80.6 kg
[~2024-10-11 07:52] MED LIST changes: -CYCL5TAB PO; +CYCL5TAB4 PO; -VITA500C19 PO; +VITA500C22 PO
[2024-10-11 09:10] VITALS: BP 137/83; TEMP 97.6; O2SAT 100
[2024-10-11] MEDS ORDERED: NAPR-885 PO (09:40)
== END 2024-10-11 09:50 | disposition home or self-care (01) ==
LOC: M ED 07:52
DX: G56.03 Carpal tunnel syndrome, bilateral upper limbs (principal); Z79.899 Other long term (current) drug therapy

== ENCOUNTER 2025-01-08 08:59 | Emergency (ER) | payer OTHER ==
[~2025-01-08] VITALS: Ht 170.2 cm; Wt 80.8 kg
[2025-01-08] MEDS ORDERED: ACET-683 PO (09:09)
[2025-01-08] MEDS ORDERED: METF-838 (09:09)
[2025-01-08] MEDS ORDERED: CETI-24 (09:09)
[2025-01-08] MEDS: ONDANSETRON 4MG ORAL DISINTEGRATING TAB PO ONE (11:25)
[2025-01-08] MEDS ORDERED: FLON1SPR NARES (12:58)
[2025-01-08 13:01] VITALS: BP 137/66; TEMP 97.1; O2SAT 99
== END 2025-01-08 13:04 | disposition home or self-care (01) ==
LOC: M ED 08:59
DX: J02.9 Acute pharyngitis, unspecified (principal); B34.9 Viral infection, unspecified; E11.9 Type 2 diabetes mellitus without complications; Z79.1 Long term (current) use of non-steroidal anti-inflammatories (NSAID); Z79.84 Long term (current) use of oral hypoglycemic drugs; Z79.899 Other long term (current) drug therapy

== ENCOUNTER → 2025-01-26 | Outpatient (REF) ==
[~2025-01-26] MED LIST changes: +CETI-24; +FLON1SPR NARES; +METF-838
== END ==
LOC: M EMP 09:14
PROVIDERS: ATTEND Family Medicine
DX: Z11.52 Encounter for screening for COVID-19 (principal)

== ENCOUNTER 2025-03-21 11:55 | Emergency (ER) | payer OTHER, MEDICAID ==
[~2025-03-21] VITALS: Ht 170.2 cm; Wt 81.9 kg
[2025-03-21 12:47] LABS: BASO % 0.6 % (0.0-1.0); EOS # 0.1 10^3/uL (0.0-0.5); EOS % 1.5 % (0.0-3.0); HEMATOCRIT 34.2 % (36.0-47.0); LYMPH # 2.3 10^3/uL (1.5-5.0); LYMPH % 42.9 % (24.0-44.0); MEAN CORPUSCULAR HEMOGLOBIN 25.3 pg (27.0-33.0); MEAN CORPUSCULAR HGB CONC 32.2 g/dl (32.0-36.5); MEAN CORPUSCULAR VOLUME 78.8 fl (80.0-96.0); MONO # 0.3 10^3/uL (0.0-0.8); MONO % 5.5 % (2.0-8.0); NEUTROPHILS # 2.7 10^3/uL (1.5-8.5); NEUTROPHILS % 49.3 % (36.0-66.0); PLATELET COUNT, AUTOMATED 230 10^3/uL (150-450); RED BLOOD COUNT 4.34 10^6/uL (4.00-5.40); WHITE BLOOD COUNT 5.4 10^3/uL (4.0-10.0)
[2025-03-21 13:10] LABS: HCG, SERUM QUALITATIVE NEGATIVE (NEGATIVE)
[2025-03-21 13:12] LABS: BLOOD UREA NITROGEN 13 MG/DL (9-23); CARBON DIOXIDE LEVEL 25 MMOL/L (20-31); CHLORIDE LEVEL 106 MMOL/L (98-107); CK-MB VALUE MASS < 1.0 NG/ML (<3.6); CREATININE FOR GFR 0.51 MG/DL (0.55-1.30); GLOMERULAR FILTRATION RATE > 90.0 (>60); GLUCOSE, FASTING 213 MG/DL (60-100); POTASSIUM SERUM 4.2 MMOL/L (3.5-5.1); SODIUM LEVEL 138 MMOL/L (136-145)
[2025-03-21 13:14] LABS: FREE T4 1.35 NG/DL (0.89-1.76); THYROID STIMULATING HORMONE 0.764 uIU/ML (0.55-4.78)
[2025-03-21 13:15] LABS: CPK CREATINE PHOSPHOKINASE 231 U/L (34-145); MB/CK RELATIVE INDEX 0.43 (< OR =4)
[2025-03-21 14:26] LABS: CK-MB VALUE MASS 1.5 NG/ML (<3.6); CPK CREATINE PHOSPHOKINASE 234 U/L (34-145); MB/CK RELATIVE INDEX 0.64 (< OR =4)
[2025-03-21 15:30] VITALS: BP 132/71; TEMP 97.9; O2SAT 98
[2025-03-21] MEDS ORDERED: BLOO-217 MC (15:36)
[2025-03-21] MEDS ORDERED: HOLTER MONITOR XX (15:36)
== END 2025-03-21 15:45 | disposition home or self-care (01) ==
LOC: M ED 11:55
DX: R07.89 Other chest pain (principal); R94.31 Abnormal electrocardiogram [ECG] [EKG]; E11.9 Type 2 diabetes mellitus without complications; Z79.84 Long term (current) use of oral hypoglycemic drugs

== ENCOUNTER → 2025-04-21 | Outpatient (CLI) | payer OTHER ==
[~2025-04-21] MED LIST changes: +BLOO-217 MC; +HOLTER MONITOR XX; +LIDO1ADH93 TD; +LIDO1ADH93 TOP; -LIDO5DIS41 TD; -LIDO5DIS41 TOP
[2025-04-21 10:55] LABS: HEMOGLOBIN A1c 7.6 % (4.0-6.0)
[2025-04-21 11:07] LABS: THYROID STIMULATING HORMONE 0.847 uIU/ML (0.55-4.78)
[2025-04-21 11:09] LABS: ALBUMIN 4.1 G/DL (3.2-5.2); ALKALINE PHOSPHATASE 73 U/L (35-104); ALT/SGPT 26 U/L (7.0-40); AST/SGOT 17 U/L (<34); BILIRUBIN,TOTAL 0.3 MG/DL (0.3-1.2); BLOOD UREA NITROGEN 14 MG/DL (9-23); CALCIUM LEVEL 9.9 MG/DL (8.5-10.1); CARBON DIOXIDE LEVEL 29 MMOL/L (20-31); CHLORIDE LEVEL 105 MMOL/L (98-107); CHOLESTEROL LEVEL 137 MG/DL (<200); CHOLESTEROL RISK RATIO 4.41 (<5); CREATININE FOR GFR 0.76 MG/DL (0.55-1.30); GLOMERULAR FILTRATION RATE > 90.0 (>60); GLUCOSE, FASTING 96 MG/DL (60-100); LDL CHOLESTEROL 35.6 MG/DL (<100); POTASSIUM SERUM 4.5 MMOL/L (3.5-5.1); SODIUM LEVEL 141 MMOL/L (136-145); TOTAL PROTEIN 7.8 G/DL (5.7-8.2); TRIGLYCERIDES LEVEL 352 MG/DL (<150)
== END ==
LOC: M LAB 09:29
PROVIDERS: ATTEND Internal Medicine Cardiovascular Disease
DX: R06.89 Other abnormalities of breathing (principal); E78.2 Mixed hyperlipidemia; Z13.1 Encounter for screening for diabetes mellitus

== ENCOUNTER → 2025-06-22 | Outpatient (CLI) | payer OTHER, MEDICAID ==
[2025-06-22 07:52] LABS: CREATININE FOR GFR 0.80 MG/DL (0.55-1.30); GLOMERULAR FILTRATION RATE > 90.0 (>60)
== END ==
LOC: M LAB 06:47
PROVIDERS: ATTEND Radiology Therapeutic Radiology
DX: E11.9 Type 2 diabetes mellitus without complications (principal)

== ENCOUNTER → 2025-11-15 | Outpatient (CLI) | payer OTHER ==
[~2025-11-15] MED LIST changes: +BLOO-217; +VICT18IN
[2025-11-15 09:52] LABS: BASO # 0.0 10^3/uL (0.0-0.2); BASO % 0.4 % (0.0-1.0); EOS # 0.1 10^3/uL (0.0-0.5); EOS % 1.7 % (0.0-3.0); LYMPH # 2.3 10^3/uL (1.5-5.0); LYMPH % 42.7 % (24.0-44.0); MONO # 0.3 10^3/uL (0.0-0.8); MONO % 6.0 % (2.0-8.0); NEUTROPHILS # 2.6 10^3/uL (1.5-8.5); NEUTROPHILS % 49.0 % (36.0-66.0); PLATELET COUNT, AUTOMATED 261 10^3/uL (150-450)
[2025-11-15 10:31] LABS: ALT/SGPT 20 U/L (7.0-40); AST/SGOT 15 U/L (<34); CALCIUM LEVEL 9.0 MG/DL (8.5-10.1); CARBON DIOXIDE LEVEL 29 MMOL/L (20-31); CHLORIDE LEVEL 105 MMOL/L (98-107); CREATININE FOR GFR 0.65 MG/DL (0.55-1.30); GLOMERULAR FILTRATION RATE > 90.0 (>60); IRON (FE) 37 UG/DL (50-170); PERCENT SATURATION 10.8 % (13.2-45.0); POTASSIUM SERUM 3.8 MMOL/L (3.5-5.1); SODIUM LEVEL 142 MMOL/L (136-145)
== END ==
LOC: M LAB 09:32
PROVIDERS: ATTEND Student in an Organized Health Care Education/Training Program
DX: D64.9 Anemia, unspecified (principal)